=== PATIENT | female | born 2000 | race Caucasian/White ===

== ENCOUNTER 2025-06-01 10:01 | Outpatient (REF) | payer BC, SELFPAY | END 2025-06-01 10:02 | disposition home or self-care (01) | LOC: HO.LNP 10:01 | PROVIDERS: PCP Nurse Practitioner; Visit Provider Nurse Practitioner Family | DX: N39.0 Urinary tract infection, site not specified (principal); R39.9 Unspecified symptoms and signs involving the genitourinary system; R31.0 Gross hematuria; R39.15 Urgency of urination; Z13.89 Encounter for screening for other disorder | CPT/HCPCS: 51798; 81003; 88112 ==

== ENCOUNTER 2025-06-01 10:01 | Outpatient (AMB) | payer BC, SELFPAY ==
--- NOTE | 2025-06-01 10:09 | A.OFFVIS_ITS ---
Intake Visit Reasons: gross hematuria Intake Note: Patient is present for GROSS HEMATURIA Urology Medication:NONE Antibiotic Allergy:NONE Blood Thinner:NONE TODAY'S PVR:0ML'S Ton Container Shipper Required: No Allergies No Known Allergies Allergy (Verified 06/01/25 10:50) HPI Comments Details: Alice is a 24-year-old female patient of Dr. Torres who was accompanied by her significant other at today's office visit. She presents to the office today as a new patient for ongoing lower urinary tract symptoms and recurrent urinary tract infections she has experienced. In discussion with the patient today she reports noting over the last 4 years she has been having issues with bladder pressure, urinary urgency, urinary frequency, and recurrent urinary tract infections. She reports previously following up with multiple urologist in the past and having trialed postcoital as well as prophylactic doxycycline however did not find this helpful and felt she was experiencing issues with yeast infections. She reports being told to avoid sexual activity however although she avoid sexual activity she continues to experience lower urinary tract symptoms. She does report having issues with her bowels. She reports at times she experiences issues with constipation and or diarrhea. We did discussed correlation of bowel issues with lower urinary tract symptoms. We did discussed potential causes of lower urinary tract symptoms she is experiencing as well as further treatment options and risks and benefits of these treatment options. She also reports noting a history of gross hematuria. In office urinalysis results reviewed with the patient today negative leukocytes negative nitrates negative microscopic hematuria. PH 6.0. We did discussed importance of adequate hydration relation to lower urinary tract symptoms as well as overall health and well-being. We also discussed bladder triggers and irritants. She does feel when she avoids caffeine and alcohol symptoms do somewhat improve however still experiences them at baseline. She also reports having trialed the Jarrett and felt initially this was helpful however most recently continues to experience lower urinary tract symptoms of urinary urgency with small voided amounts, bladder pressure, as well as discomfort to her urethra. Call questions were answered to the best my ability. We discussed obtaining CT urogram as well as in office cystoscopy for further assessment evaluation. She is agreeable. She denies foul smelling urine, changes to urinary stream, flank pain, fever, and or chills. She otherwise offers no other issues or concerns at this time. Review of Systems Const All systems reviewed & are unremarkable except as noted in HPI and below Physical Exam Const General: cooperative, healthy appearing, comfortable, no acute distress, well developed, alert and awake Nutritional Appearance: average body habitus Orientation/consciousness: patient oriented x3 Limitations: no limitations HEENT Head: Yes normal to inspection, Yes normocephalic and Yes atraumatic Ears: hearing grossly normal bilaterally Eyes General: appearance normal, both eyes and all related structures Neck Neck: Yes normal visual inspection and Yes trachea midline Chest Chest palpation & inspection: normal inspection of the chest Resp Effort & Inspection: normal respiratory effort and able to speak in complete sentences Cardio Rate: regular rate GI Inspection: Yes normal to inspection General: Yes no CVA tenderness Back/Spine/Pelvis Back: no CVA tenderness Skin General skin exam: no rashes or lesions noted Neuro General: patient oriented x3 Extrem General: Yes normal to inspection Psych Appearance: grossly normal and well kempt Mental Status: mental status grossly normal Speech and movement: Normal speech and movement present and Clear speech present Affect: normal affect Attitude: cooperative Thought process: Normal thought process present Thought content: Normal thought content present Insight: Fair insight present (Psych) Judgement: Fair judgement present (Psych) Office Procedures Post Void Residual Post Residual Void Post Void Residual (PVR): 0 [id number] Void Residual by ultrasound Results AMB Urinalysis, Automated UA Leukoctes 0 Sean/uL Last Edit by GIO Jorgensen on 06/01/25 10:30 UA Nitrite Negative Last Edit by GIO Jorgensen on 06/01/25 10:30 UA Urobilinogen 0.2 mg/dL Last Edit by GIO Jorgensen on 06/01/25 10:3 0 UA Protein 0 mg/dL Last Edit by GIO Jorgensen on 06/01/25 10:30 UA pH 6.0 Last Edit by GIO Jorgensen on 06/01/25 10:30 UA Blood 0 Onel/uL Last Edit by GIO Jorgensen on 06/01/25 10:30 UA Specific Corning 1.015 Last Edit by GIO Jorgensen on 06/01/25 10: 30 UA Ketone Negative Last Edit by GIO Jorgensen on 06/01/25 10:30 UA Bilirubin 0 mg/dL Last Edit by GIO Jorgensen on 06/01/25 10:30 UA Glucose 0 mg/dL Last Edit by GIO Jorgensen on 06/01/25 10:30 Results Reviewed Results Reviewed: Laboratory Last Values Urine pH (Auto) 6.0 06/01/25 10:29 Specific Corning (Auto) 1.015 06/01/25 10:29 Urine Protein (Auto) 0 mg/dL 06/01/25 10:29 Glucose (UA)(Auto) 0 mg/dL 06/01/25 10:29 Urine Ketones (Auto) Negative 06/01/25 10:29 Urine Blood (Auto) 0 Onel/uL 06/01/25 10:29 Urine Nitrite (Auto) Negative 06/01/25 10:29 Urine Bilirubin (Auto) 0 mg/dL 06/01/25 10:29 Urine Urobilinogen (Auto) 0.2 mg/dL 06/01/25 10:29 Leukocyte Esterase (Auto) 0 Sean/uL 06/01/25 10:29 Assessment & Plan Assessment & Plan (1) Gross hematuria: Code(s): R31.0 - Gross hematuria Category: Medical (2) Recurrent urinary tract infection: Code(s): N39.0 - Urinary tract infection, site not specified Category: Medical (3) Lower urinary tract symptoms: Code(s): R39.9 - Unspecified symptoms and signs involving the genitourinary system Category: Medical Plan In office urinalysis results reviewed with the patient today; as noted above; will send for urine cytology. We did discussed potential near future microgen for further assessment evaluation. Will obtain CT urogram for further assessment evaluation. BUN and creatinine ordered for imaging. We discussed potential causes of lower urinary tract symptoms patient is experiencing as well as recurrent urinary tract infections; we discussed further treatment options and risks and benefits of these treatment options. We discussed the importance of adequate hydration relation to lower urinary tract symptoms as well as overall health and well-being. We discussed bladder triggers and irritants. Start Cialis as discussed and prescribed. Follow-up next available in office cystoscopy with imaging and labs to be completed prior; or sooner with any issues, concerns, and or questions. Orders: Orders AMB Urinalysis Automated Today Z13.9 - Encounter for screening, unspecified Urine Cytology Today R31.0 - Gross hematuria CT urogram Today R31.0 - Gross hematuria Blood Urea Nitrogen Today R39.15 - Urgency of urination Creatinine Today R39.15 - Urgency of urination Medications: New [facility]adal[facility] ([id number] [facility] [id number] 5 mg PO DAILY 90 tabs 1RF 90 days tadalafil (Cialis) [id number] [facility] Member [id number] 5 mg PO DAILY 90 days 90 tabs 1RF Coding Level of Care Code New Pt Level 4 (98970) Diagnoses Gross hematuria R31.0 Recurrent urinary tract infection N39.0 Lower urinary tract symptoms R39.9 CPT Codes Post Residual Void - PVR CPT Code: 32516-[id number] Void Residual by ultrasound ([id number])
--- OUTSIDE RECORDS SUMMARY | 2025-06-01 10:34 | XMS_ITS | Clinical Summary ---
Author Organization [facility] Address [address] [place] [address] Care Team Providers Care Shipping Room Helper Name Role Phone Unavailable Primary Care Provider Unavailabl e Social History Tobacco Use Types Packs/Day Years Used Date Smoking Tobacco: Never Assessed Sex and Gender Information Value Date Recorded Sex Assigned at Not on file Gender Identity Not on file Sexual Orientation Not on file Plan of Treatment Not on file
--- OUTSIDE RECORDS SUMMARY | 2025-06-01 10:34 | XMS_ITS | Encounter Summary ---
Author Organization [facility] Address [address] [facility] [address] [place] [address] Phone Care Team Providers Care Beauty Therapist Name Role Phone Yumi Torres NP Primary Care Provider [phone] Encounter Details Date Type Department Care Team (Latest Contact Info) Description 03/26/2018 Transcribe Orders [facility] [address] [place] [id number] Rigoberto Kay MD [address] [facility] [address] [place] [address] [email or web address] Dysmenorrhea (Primary Dx) Social History Tobacco Use Types Packs/Day Years Used Date Smoking Tobacco: Never Smokeless Tobacco: Never Alcohol Use Standard Drinks/Week Comments Yes 9 (1 standard drink = 0.6 oz pur e alcohol) monthly Comments No Sex and Gender Information Value Date Recorded Sex Assigned at Female 03/02/2018 8:03 PM EDT Legal Sex Female 8:46 PM EDT Gender Identity Female 03/02/2018 8:03 PM EDT Sexual Orientation Not on file Occupation Industry Job Start Date Job End Date student Not on file Not on file Not on file documented as of this encounter Plan of Treatment Not on file documented as of this encounter Results * US PELVIS TRANSABDOMINAL PLUS TRANSVAGINAL (03/26/2018 4:18 PM EDT) Anatomical Region Laterality Modality Pelvis, Uterus/Adnexa OB Ultraso und 03/26/2018 4:20 PM EDT Impressions 03/26/2018 6:09 PM EDT 1. Normal appearing uterus. 2. Normal appearing endometrial stripe complex. 3. The right ovary contains two cysts as described above. One is simple in appearance. The other contains dense internal echoes with an appearance suggestive of a hemorrhagic cyst. However, an endometrioma can not be excluded. Consider follow-up ultrasound in 6 weeks. 4. Normal appearing left ovary. 5. There is no free fluid. . Narrative 03/26/2018 6:09 PM EDT INDICATION: Dysmenorrhea EXAM DATE: 03/26/2018 4:20 PM LMP DATE: 03/07/2018 GYNECOLOGICAL ULTRASONOGRAPHY: Uterus Volume: 70.83 ml Homogeneous, anteverted uterus with smooth contour. Length: 7.55 cm Height: 3.40 cm Width: 5.27 cm Endometrial Thickness: 5.4 mm Appears unremarkable Right Ovary Volume: 18.58 ml Appears to contain a simple cyst as well as what appears to be a hemorrhagic cyst with dense internal echos and no increased vascularity noted. No adnexal masses seen. Length: 4.22 cm Height: 2.67 cm Width: 3.15cm Cyst Simple Length: 1.84 cm Height: 1.76cm Width: 2.60 cm Cyst Hemorrhagic cyst v/s endometrioma Length: 3.08 cm Width: 2.44 cm Height: 2.94 cm Left Ovary Volume: 3.03 ml Normal appearance with follicles. No adnexal masses seen. Length: 2.27 cm Height: 1.41 cm Width: 1.81 cm Cul de Sac Fluid: No free fluid noted COMMENTS: Anteverted uterus Normal appearing endometrial lining with no intercavitary masses noted. The right ovary is cystic, see above comments The left ovary is unremarkable with follicles within. Transabdominal and transvaginal scanning was performed. Procedure Note Rigoberto Kay MD - 03/26/2018 INDICATION: Dysmenorrhea EXAM DATE: 03/26/2018 4:20 PM LMP DATE: 03/07/2018 GYNECOLOGICAL ULTRASONOGRAPHY: Uterus Volume: 70.83 ml Homogeneous, anteverted uterus with smooth contour. Length: 7.55 cm Height: 3.40 cm Width: 5.27 cm Endometrial Thickness: 5.4 mm Appears unremarkable Right Ovary Volume: 18.58 ml Appears to contain a simple cyst as well as what appears to be ahemorrhagic cyst with dense internal echos and no increased vascularitynoted. No adnexal masses seen. Length: 4.22 cm Height: 2.67 cm Width: 3.15cm Cyst Simple Length: 1.84 cm Height: 1.76cm Width: 2.60 cm Cyst Hemorrhagic cyst v/s endometrioma Length: 3.08 cm Width: 2.44 cm Height: 2.94 cm Left Ovary Volume: 3.03 ml Normal appearance with follicles. No adnexal masses seen. Length: 2.27 cm Height: 1.41 cm Width: 1.81 cm Cul de Sac Fluid: No free fluid noted COMMENTS: Anteverted uterus Normal appearing endometrial lining with no intercavitary masses noted. The right ovary is cystic, see above comments The left ovary is unremarkable with follicles within. Transabdominal and transvaginal scanning was performed. IMPRESSION: 1. Normal appearing uterus. 2. Normal appearing endometrial stripe complex. 3. The right ovary contains two cysts as described above. One is simplein appearance. The other contains dense internal echoes with anappearance suggestive of a hemorrhagic cyst. However, an endometrioma cannot be excluded. Consider follow- up ultrasound in 6 weeks. 4. Normal appearing left ovary. 5. There is no free fluid. . Rigoberto Kay MD IMG US PELVIS Final Result documented in this encounter Visit Diagnoses Diagnosis Dysmenorrhea- Primary Dysmenorrhea documented in this encounter Additional Health Concerns Infection Onset Date Last Indicated Resolved Time CoV-Exposed Comment:Recent close contact 05/27/2020 05/27/2020 06/10/2020 1:37 AM EDT documented as of this encounter Care Teams Beauty Therapist Relationship Specialty Start Date End Date Yumi Torres NP [address] [place] [address] [email or web address] PCP - General 03/02/18 documented as of this encounter Additional Source Comments The information contained in this document represents components of the legal health record. It is not the complete legal health record.[facility]
--- OUTSIDE RECORDS SUMMARY | 2025-06-01 10:34 | XMS_ITS | Clinical Summary ---
Author Organization [facility] Address [facility] [place] [address] Care Team Providers Care Truer Pinion And Wheel Name Role Phone Unavailable Primary Care Provider Unavailabl e Social History Tobacco Use Types Packs/Day Years Used Date Smoking Tobacco: Never Assessed Comments Unknown Sex and Gender Information Value Date Recorded Sex Assigned at Not on file Legal Sex Female 9:18 AM EDT Gender Identity Not on file Sexual Orientation Not on file Plan of Treatment Health Maintenance Due Date Last Done Comments Chlamydia Screening 2016 HPV vaccine (1 - 3-dose series) 2016 HIV screen 2019 Hepatitis C Screening 2019 Hepatitis B vaccine (0-59 yrs) and Risk (1) 2020 Tetanus/Diphtheria/Pertussis Vaccines (1 - Tdap) 07/29 PAP Smear 2022 Covid-19 Vaccine (1 - 2023- season) 2024 Influenza (Flu) vaccine (1 o f 1 - Influenza standard series) 06/28/2025 [facility]
--- OUTSIDE RECORDS SUMMARY | 2025-06-01 10:34 | XMS_ITS | Clinical Summary ---
[facility] Address [address] [place] [address] Care Team Providers Care Lightning Rod Erector Name Role Phone Unavailable Primary Care Provider Unavailabl e Social History Tobacco Use Types Packs/Day Years Used Date Smoking Tobacco: Never Assessed Comments Unknown Sex and Gender Information Value Date Recorded Sex Assigned at Not on file Legal Sex Female 12:09 AM EST Gender Identity Not on file Sexual Orientation Not on file Plan of Treatment Health Maintenance Due Date Last Done Comments Gonorrhea/Chlamydia Screening 2001 HPV Vaccines (1 - 3-dose series) 2016 Meningococcal B Vaccine (1 o f 2 - Standard) 2017 DTaP,Tdap,and Td Vaccines (1 - Tdap) 2020 Hepatitis B Vaccines (1 of 3 - 19+ 3-dose series) 2020 Cervical Cancer Screening: P ap Smear 2022 COVID-19 Vaccine ( - 2023-2 5 season) 2024 Depression Screening 10/28/2024 Influenza Vaccine (#1) 2025 HIB Vaccines Aged Out No longer eligi ble based on patient's age to complete this topic Hepatitis A Vaccines Aged Out No long er eligible based on patient's age to complete this topic IPV Vaccines Aged Out No longer eligi ble based on patient's age to complete this topic MMR Vaccines Aged Out No longer eligi ble based on patient's age to complete this topic Meningococcal ACWY Vaccine Aged Out N o longer eligible based on patient's age to complete this topic Pneumococcal Vaccine: Pediat rics (0 to 5 Years) and At-Risk Patients (6 to 49 Years) Aged Out No longer eligible b ased on patient's age to complete this topic RSV Immunization Patients Un soumya 20 months Aged Out No longer eligible b ased on patient's age to complete this topic Varicella Vaccines Aged Out No longer eligible based on patient's age to complete this topic
== END 2025-06-01 10:52 | disposition home or self-care (01) ==
LOC: HO.HUSH 10:02
PROVIDERS: PCP Nurse Practitioner; Visit Provider Nurse Practitioner Family
DX: R31.0 Gross hematuria (principal); N39.0 Urinary tract infection, site not specified; R39.9 Unspecified symptoms and signs involving the genitourinary system; Z13.9 Encounter for screening, unspecified
CPT/HCPCS: 99204

== ENCOUNTER 2025-07-19 08:17 | Outpatient (REF) | payer BC, SELFPAY ==
--- NOTE | ~2025-07-19 | CT_ITS ---
CLINICAL HISTORY: R31.0 - Gross hematuria CT abdomen and pelvis with and without contrast Comparison: None provided Findings: The lung bases are clear. There is no urinary calculus or obstructive uropathy. No suspicious renal parenchymal lesion. Visualized ureters are normal in course and in caliber. Portions of the ureters are not opacified. No suspicious bladder lesion identified. The liver exhibits a probable small cyst or hemangioma peripherally within the right lobe on axial 28 The gallbladder, spleen, adrenal glands and pancreas are unremarkable. Moderate fecal retention throughout the colon. Normal appendix. No free air or free fluid. Well-positioned IUD. No adnexal lesion. No acute osseous finding. Impression: There is no urinary calculus or suspicious urinary tract lesion identified. This document has been electronically signed by: uX Munson MD on 07/19/2025 12:56:04
[2025-07-19] MEDS: iohexoL 350 MG/ML 100 ML INFUS..BTL 85 ML IV (09:09)
--- OUTSIDE RECORDS SUMMARY | 2025-07-19 09:25 | XMS_ITS | Encounter Summary ---
Author Organization [facility] Address [address] [facility] [address] [place] [phone] Phone Care Team Providers Care Clinical Pharmacy Specialist Name Role Phone Yumi Torres NP Primary Care Provider [phone] Encounter Details Date Type Department Care Team (Late st Contact Info) Description 07/24/2024 Procedure Pass [facility], [address] [address] Social History Tobacco Use Types Packs/Day Years Used Date Smoking Tobacco: Some Days Cigarettes Smokeless Tobacco: Never Alcohol Use Standard Drinks/Week Comments Yes 9 (1 standard drink = 0.6 oz pur e alcohol) couple in a week Education Answer Date Recorded Are you interested in more education? Not on ashleigh e 02/22/2023 Are you concerned about learning? Not on file 02/22/2023 No 02/22/2023 No 02/22/2023 Digital Access Answer Date Recorded No 03/22/2023 No 03/22/2023 Reliable internet access at home? Not on file 03/22/2023 Device with a working camera? Not on file Comments No Sex and Gender Information Value Date Recorded Sex Assigned at Female 03/02/2018 8:03 PM EDT Legal Sex Female 8:46 PM EDT Gender Identity Female 03/02/2018 8:03 PM EDT Sexual Orientation Not on file Occupation Industry Job Start Date Job End Date student Not on file Not on file Not on file documented as of this encounter Last Filed Vital Signs Vital Sign Reading Time Taken Comments Blood Pressure - - Pulse - - Temperature - - Respiratory Rate - - Oxygen Saturation - - Inhaled Oxygen Concentration - - Weight 72.6 kg (160 lb) 07/27/2024 1:46 PM EDT Height 177.8 cm (5' 10 ) 07/27/2024 1:46 PM EDT Body Mass Index 22.96 07/27/2024 1:46 PM EDT documented in this encounter Plan of Treatment Not on file documented as of this encounter Visit Diagnoses Not on filedocumented in this encounter Care Teams Clinical Pharmacy Specialist Relationship Specialty Start Date End Date Yumi Torres NP [address] [place] [id number] [email or web address] PCP - General 03/02/18 documented as of this encounter Additional Source Comments The information contained in this document represents components of the legal health record. It is not the complete legal health record.[facility]
--- OUTSIDE RECORDS SUMMARY | 2025-07-19 09:25 | XMS_ITS | Encounter Summary ---
Author Organization [facility] Address [address] [place] [address] Phone Care Team Providers Care Land Acquisition Analyst Name Role Phone Yumi Torres NP Primary Care Provider [phone] Encounter Details Date Type Department Care Team (Late st Contact Info) Description 08/07/2019 Procedure Pass [facility] [place], [address] [address] Social History Tobacco Use Types Packs/Day Years [...] Diagnoses Not on filedocumented in this encounter Additional Health Concerns Infection Onset Date Last Indicated Resolved Time CoV-Exposed Comment:Recent close contact 05/27/2020 05/27/2020 06/10/2020 1:37 AM EDT documented as of this encounter Care Teams Land Acquisition Analyst Relationship Specialty Start Date End Date Yumi Torres NP [address] [place] [address] [email or web address] PCP - General 03/02/18 documented as of this encounter Additional Source Comments The information contained in this document represents components of the legal health record. It is not the complete legal health record.[facility]
--- OUTSIDE RECORDS SUMMARY | 2025-07-19 09:25 | XMS_ITS | Clinical Summary ---
Author Organization [facility] Address [address] [place] [address] Care Team Providers Care Fuselage Framer Name Role Phone Unavailable Primary Care Provider Unavailabl e Social History Tobacco Use Types Packs/Day Years Used Date Smoking Tobacco: Never Assessed Sex and Gender Information Value Date Recorded Sex Assigned at Not on file Gender Identity Not on file Sexual Orientation Not on file Plan of Treatment Not on file
--- OUTSIDE RECORDS SUMMARY | 2025-07-19 09:25 | XMS_ITS | Clinical Summary ---
Author Organization [facility] Address [address] [facility] [address] [place] [address] Phone Care Team Providers Care Shell Worker Name Role Phone Yumi Torres NP Primary Care Provider [phone] Allergies Active Allergy Reactions Criticality Noted Date Comments Amoxicillin Rash Low 03/02/2018 Penicillin G Benzathine Rash Low 04/12/2016 Medications levonorgestreL (MIRENA) 20 mcg/24 hours (5 yrs) 52 mg intrauterine device 1 Device by Intrauterine route Once every 5 years. Active clobetasol (TEMOVATE) 0.05 % ointmentIndicati ons:LSC (lichen simplex chronicus) Apply topically 3 (three) times a week. Lentil size or smaller amount. With flare of symptoms may increase twice a day and when resolved resume three nights/week. 45 g 1 Active tacrolimus (PROTOPIC) 0.1 % ointmentIndicati ons:Lichen simplex chronicus Apply topically 2 (two) times a day. Apply to affected area 60 g 1 3 Active ibuprofen (ADVIL,MOTRIN) 600 MG tablet Take 600 mg by mouth every 8 (eight) hours as needed for pain (specific location in comments). with food 4 Active magnesium hydroxide (MOM) 400 mg/5 mL Susp Take 5 mL by mouth daily as needed (constipation). 4 Active venlafaxine (EFFEXOR) 75 MG tablet 5 Active Active Problems Problem Noted Date Diagnosed Date Lichen simplex chronicus 06/20/2021 Assessment & Plan (06/20/2021 5:11 PM EDT): Discussed use of small amount of clobetasol applied to affected areas 2-3 nights per week. Increase to twice daily use with flare. Chronicity of condition reviewed with patient. More consistent clobetasol use may help prevent dyspareunia and flare of symptoms. [place] Follow-up 1 year/as needed. History of chlamydia 03/28/2021 Overview (06/20/2021): March 2021 Assessment & Plan (06/20/2021 5:13 PM EDT): Pt had additional STI screening at time of chlamydia infection in March. Labs are reviewed. All negative-HIV, hepatitis, RPR. I have advised patient to have repeat screening for chlamydia in 3 to 4 months following recent infection. Safe sexual practices encouraged. Chronic vulvitis 11/17/2018 Overview (06/25/2019): bx may 2019 - lichen simplex chronicus Assessment & Plan (05/23/2020 11:29 AM EDT): Flare in sxs, exam c/w more of a LP , contact dermatitis, or possibly yeast based on the recent antix use Will treate empirically for yeast with diflucan, increase clobetasol to BID up to 6 weeks (if helping), can also soak and seal daily Menorrhagia with regular cycle 03/16/2018 Dysmenorrhea 03/16/2018 Menstrual migraine without s tatus migrainosus, not intractable 03/16/2018 Immunizations Immunization Administration Dates Next Due DTaP, unspecified formulation 12/02/2005 ,02/19/2003,04/28/2002,02/03 [id number] 08/24/2009 HPV,quadrivalent 01/27/2015,03/08/2014, 4 Hepatitis A, Adult 08/10/2015 Hepatitis A, ped/adol, 2 dose 02/06/2016 Hepatitis B, unspecified formulation 01/21/2008, 07/08/2007,01/21/2007 Hib, unspecified formulation 11/20/2002, 02/03/2002,2001,09/23 INFLUENZA, SPLIT VIRUS, TRIV ALENT W/ PRESERVATIVE IM 07/22/2012,08/24/2010,09/26/2009 IPV 11/26/2005, 3,02/03/2002,12/02 Influenza Quadrivalent MDCK Preservative Free IM 08/22/2018 Influenza Quadrivalent Prese rvative Free IM 07/12/2016,08/10/2015 Influenza quadrivalent nasal 08/13/2011 MMR 11/26/2005,08/07/2002 Meningococcal MCV4P 04/06/2019,12/28/2013 Tdap 12/30/2013 Typhoid, unspecified formulation 03/14/2016 Varicella 01/02/2010,01/21/2007 Family History Medical History Relation Comments No Known Problems Father Heart attack Maternal Grandfather Endometriosis Maternal Grandmother Heart failure Maternal Grandmother Endometriosis Mother Relation Status Comments Brother Alive Father Alive Maternal Grandfather Maternal Grandmother Mother Alive Paternal Grandfather Paternal Grandmother Alive Social History Tobacco Use Types Packs/Day Years Used Date Smoking Tobacco: Some Days Cigarettes Smokeless Tobacco: Never Alcohol Use Standard Drinks/Week Comments Yes 9 (1 standard drink = 0.6 oz pur e alcohol) couple in a week Home Health Assessment: Transportation Answer Date Recorded Lack of Transportation (Medical) No 09/22/2024 Lack of Transportation (Non-Medical) No 09/22/2024 Patient Unable or Declines to Respond No 09/22/2024 Education Answer Date Recorded Are you interested [...] file Not on file Not on file Last Filed Vital Signs Vital Sign Reading Time Taken Comments Blood Pressure 110/64 02/02/2025 8:25 AM EDT Pulse 58 09/14/2024 11:47 AM EST Temperature 37.2 C (98.9 F) 03/02/2018 8:02 PM EDT Respiratory Rate 18 03/02/2018 10:09 PM EDT Oxygen Saturation 98% 09/14/2024 11:47 AM EST Inhaled Oxygen Concentration - - Weight 74.5 kg (164 lb 3.2 oz) 12/17/2024 8:29 A M EST Height 177.8 cm (5' 10 ) 07/27/2024 1:46 PM EDT Body Mass Index 23.56 07/27/2024 1:46 PM EDT Plan of Treatment Health Maintenance Due Date Last Done Comments DEPRESSION SCREENING 2013 MENINGOCOCCAL VACCINES (B) ( 1 of 2 - Standard) 2017 PNEUMOCOCCAL VACCINES (0-49 years) (1 of 2 - PCV) 2020 Adult Td,Tdap Booster 12/31/2023 12/30/2013 INFLUENZA VACCINE (#1) 2025 8, 07/12/2016, 08/10/2015, Additional history exists COVID-19 VACCINE (2024-2 6 season) 2025 04/19/2021, 03/29/2021 CHLAMYDIA SCREENING 02/02/2026 02/02/2025, 08/11/2024, 04/04/2021, Additional history exists SMOKING Hx and SMOKELESS TOB ACCO SCREENING 02/02/2026 02/02/2025 IUD 04/21/2026 04/21/2018 PAP SMEAR 08/11/2027 08/11/2024 HIB VACCINES Completed 11/20/2002, 0406/2002, 2001, Additional history exists HPV VACCINES Completed 01/27/2015, 02/25, 12/28/2013 HEPATITIS A VACCINES Completed 02/06/2016, 08/10/20 15 MENINGOCOCCAL VACCINES (ACWY) Completed 04/06/2019, 12/28/2013 HEPATITIS C SCREENING Completed 04/04/2021 HIV ONE-TIME SCREENING (18-6 5 YEARS) Completed 04/04/2021 Medical Devices Not on file Procedures Procedure Name Priority Date/Time Associated Diagnosis Comments CHLAMYDIA TRACHOMATIS AND NEISSERIA GONORRHOEAE NUCLEIC ACID DETECTION Routine 02/02/2025 8:53 AM EDT Exposure to chlamydia PAP TEST Routine 08/11/2024 12:00 AM EDT HEPATITIS C ANTIBODY, QUALITATIVE Routine 04/04/2021 3:34 PM EDT Screening for STD (sexually transmitted disease) from Last 3 Months or Most Recently Relevant to Health Maintenance Results * Chlamydia trachomatis and Neisseria gonorrhoeae Nucleic Acid Amplification (02/02/2025 8:53 AM EDT) CHLAMYDIA TRACHOMATIS Not Detected Not Detected [facility] NEISERIA GONORRHOEAE Not Detected Not Detected [facility] SPECIMEN TYPE ENDOCERVICAL NANNY/HOUSEHOLD MANAGER [facility] Other (Endocervical) 02/02/2025 8:53 AM EDT 02/02/2025 3:26 PM EDT Rigoberto Kay MD NON CULTURE MICROBIOLOGY [facility] Result Performing Organization Address City/State/[facility] Co de Phone Number [address] [address] * Pap Test (08/11/2024 12:00 AM EDT) 08/11/2024 08/12/2024 9:3 1 AM EDT Narrative SEE NARRATIVE - 08/13/2024 10:37 AM EDT [address] [address] Global Creative Chairman: Chavez Pathak MD PRESS MACHINE FEEDER Cytology Report FINAL DIAGNOSIS A. PAP SMEAR (THIN PREP) CE: SPECIMEN ADEQUACY: Satisfactory for evaluation; transformation zone present. INTERPRETATION: NEGATIVE FOR INTRAEPITHELIAL LESION OR MALIGNANCY. Coccobacilli consistent with shift in morgan This specimen was analyzed by the automated ThinPrep Imaging System (Money M[employer].) and manually rescreened by a regional psychiatric director and/or pathologist. Electronically Signed Out By: LESLEY Denise(ASCP) The Pap test is a screening test primarily for squamous cancers and precursors and has associated false-negative and false-positive results. New technologies such as liquid-based preparations may decrease but will not eliminate all false-negative results. Regular sampling and follow-up of unexplained clinical signs and symptoms are recommended to minimize false negative results. CLINICAL HISTORY Date of Last Menstrual Period: Not Provided Menstrual History: Unknown Contraceptive History: IUD Other Clinical Conditions: Screening Pap SPECIMEN SOURCE A: PAP SMEAR (THIN PREP) CE Patient Name: CAITLIN ALICE Arechiga : 2000 (Age: 24) Sex: F Institution: [facility] Location: [facility] Date of Collection: 08/11/2024 Date of Reported: 08/13/2024 10:37 Results to: Keerthi Wilson MD Keerthi Wilson MD CYTOLOGY ORDERABLES Final Result Performing Organization Address City/[facility]/ZIP Co de Phone Number SEE NARRATIVE * Hepatitis C antibody, qualitative (04/04/2021 3:34 PM EDT) HCV NON-REACTIV E NON-REACTI VE [facility] Blood 04/04/2021 3:34 PM EDT 04/04/2021 3:40 PM EDT Rigoberto Kay MD LAB BLOOD ORDERABLES Final Re sult Performing Organization Address City/[facility]/ZIP Co de Phone Number [facility] [address] [place] [address] from Last 3 Months or Most Recently Relevant to Health Maintenance Insurance [facility] PPO EPO [facility] PPO EPO [facility] PPO EPO [facility] PPO EPO PPO EPO PPO EPO Care Teams Shell Worker Relationship Specialty Start Date End Date Yumi Torres NP [address] [place] [address] [email or web address] PCP - General 03/02/18 Additional Source Comments The information contained in this document represents components of the legal health record. It is not the complete legal health record.[facility]
--- OUTSIDE RECORDS SUMMARY | 2025-07-19 09:25 | XMS_ITS | Clinical Summary ---
Author Organization [facility] Address [address] [place] [address] Care Team Providers Care Cylinder Grinder Name Role Phone Unavailable Primary Care Provider [...] Cervical Cancer Screening: P ap Smear 2022 Depression Screening 10/28/2024 COVID-19 Vaccine ( - 2023-2 5 season) 2025 Influenza Vaccine (#1) 2025 HIB Vaccines Aged [...]
--- OUTSIDE RECORDS SUMMARY | 2025-07-19 09:25 | XMS_ITS | Encounter Summary ---
Author Organization [facility] Address [address] [place] [address] [place] [address] Phone Care Team Providers Care Geriatric Case Manager Name Role Phone Yumi Torres NP Primary Care Provider [phone] Encounter Details Date Type Department Care Team (Latest Contact Info) Description 03/26/2018 Transcribe Orders [facility] [address] [place] [address] Rigoberto Kay MD [address] [address] [email or web address] Dysmenorrhea (Primary Dx) Social History Tobacco Use [...] documented as of this encounter Care Teams Geriatric Case Manager Relationship Specialty Start Date End Date Yumi Torres NP [address] [place] [address] [email or web address] PCP - General 03/02/18 documented as of this encounter Additional Source Comments The information contained in this document represents components of the legal health record. It is not the complete legal health record.[facility]
--- OUTSIDE RECORDS SUMMARY | 2025-07-19 09:25 | XMS_ITS | Encounter Summary ---
Author Organization [facility] Address [address] [facility] [place] [address] Phone Care Team Providers Care Steel Fabricator Name Role Phone Yumi Torres NP Primary Care Provider [phone] Encounter Details Date Type Department Care Team (Latest Contact Info) Description 07/25/2018 Transcribe Orders [facility] [address] [place] [address] Dr Armstrong [place] [phone] Dexter Pang PA [email or web address] Acne, unspecified acne type (Primary Dx); Need for prophylactic chemotherapy Social History Tobacco Use Types Packs/Day Years [...] documented as of this encounter Results * HCG (quantitative blood), (07/25/2018 3:35 PM EDT) HCG BETA <0.1 mIU/mL [facility] Comment: Interpretation: FEMALE: Negative Result: Less than 5 mIU/ml. 1 Week Post Conception: 0 - 50 mIU/ml. 4 Weeks Post Conception: 3,000 - 19,000 mIU/ml. 12 Weeks Post Conception: 16,000 - 160,000 mIU/ml. Blood 07/25/2018 3:35 PM EDT 07/25/2018 3:38 PM EDT us Dexter [facility] LAB BLOOD ORDERABLES Final Re sult Performing Organization Address [facility] Co de Phone Number [address] [address] * (ABNORMAL) Triglycerides (07/25/2018 3:35 PM EDT) TRIGLYCERIDES 191(H) 30 - 160 mg/dL [facility] Blood 07/25/2018 3:35 PM EDT 07/25/2018 3:38 PM EDT Dexter [facility] LAB BLOOD ORDERABLES Final Re sult Performing Organization Address [facility] de Phone Number [address] [address] * LFTs (hepatic panel) (07/25/2018 3:35 PM EDT) ALKALINE PHOSPHATASE 72 39 - 117 U/L [facility] TOTAL BILIRUBIN 0.3 0.0 - 1.2 mg/dL [facility] DIRECT BILIRUBIN <0.2 0 - 0.3 mg/dL [facility] Bilirubin (Indirect) NOT CALCULATED 0 - 1.5 mg/dL [facility] AST 24 0 - 37 U/L [facility] ALT 15 0 - 40 U/L [facility] TOTAL PROTEIN 7.3 6.5 - 8.0 g/dL [facility] ALBUMIN 4.5 3.9 - 4.8 g/dL [facility] GLOBULIN 2.8 1 - 4.8 g/dL [facility] A/G Ratio 1.61 1.00 - 4.80 RATIO [facility] Blood 07/25/2018 3:35 PM EDT 07/25/2018 3:38 PM EDT Dexter [facility] LAB BLOOD ORDERABLES Final Re sult [facility] [address] [place] [address] documented in this encounter Visit Diagnoses Diagnosis Acne, unspecified acne type- Primary Need for prophylactic chemotherapy Need for other prophylactic chemotherapy documented in this encounter Additional Health Concerns Infection Onset Date Last Indicated Resolved Time CoV-Exposed Comment:Recent close contact 05/27/2020 05/27/2020 06/10/2020 1:37 AM EDT documented as of this encounter Care Teams Steel Fabricator Relationship Specialty Start Date End Date Yumi Torres NP [address] [place] [address] [email or web address] PCP - General 03/02/18 documented as of this encounter Additional Source Comments The information contained in this document represents components of the legal health record. It is not the complete legal health record.[facility]
--- OUTSIDE RECORDS SUMMARY | 2025-07-19 09:25 | XMS_ITS | Encounter Summary ---
Author Organization [facility] Address [address] [facility] [place] [address] Phone Care Team Providers Care Machine Clothing Replacer Name Role Phone Yumi Torres NP Primary Care Provider [phone] Encounter Details Date Type Department Care Team (Latest Contact Info) Description 05/21/2019 Transcribe Orders [facility] [address] [place] [address] Dr Armstrong [place] [phone] Vish Rondon, PA [address] [place] [address] [email or web address] Encounter for long-term (current) use of other medications (Primary Dx) Social History Tobacco Use Types [...] documented as of this encounter Results * Ferritin (05/21/2019 9:35 AM EDT) FERRITIN 30 13 - 150 ug/L [facility] Blood 05/21/2019 9:35 AM EDT 05/21/2019 9:37 AM EDT us Vish [facility] LAB BLOOD ORDERABLES Final Result [facility] [address] [place] [address] documented in this encounter Visit Diagnoses Diagnosis Encounter for long-term (current) use of other medications- Primary documented in this encounter Additional Health Concerns Infection Onset Date Last Indicated Resolved Time CoV-Exposed Comment:Recent close contact 05/27/2020 05/27/2020 06/10/2020 1:37 AM EDT documented as of this encounter Care Teams Machine Clothing Replacer Relationship Specialty Start Date End Date Yumi Torres NP [address] [place] [address] [email or web address] PCP - General 03/02/18 documented as of this encounter Additional Source Comments The information contained in this document represents components of the legal health record. It is not the complete legal health record.[facility]
--- OUTSIDE RECORDS SUMMARY | 2025-07-19 09:25 | XMS_ITS | Encounter Summary ---
Author Organization [facility] Address [address] [facility] [address] [place] [address] Phone Care Team Providers Care Lineworker Name Role Phone Yumi Torres NP Primary Care Provider [phone] Encounter Details Date Type Department Care Team (Late st Contact Info) Description 07/15/2019 Procedure Pass [facility], [address] [address] Social History Tobacco Use Types Packs/Day Years [...] documented as of this encounter Care Teams Lineworker Relationship Specialty Start Date End Date Yumi Torres NP [address] [place] [phone] [email or web address] PCP - General 03/02/18 documented as of this encounter Additional Source Comments The information contained in this document represents components of the legal health record. It is not the complete legal health record.[facility]
--- OUTSIDE RECORDS SUMMARY | 2025-07-19 09:25 | XMS_ITS | Clinical Summary ---
Author Organization [facility] Address [facility] [address] Care Team Providers Care Certified Art Therapist Name Role Phone Unavailable Primary Care Provider [...] 2022 Covid-19 Vaccine (1 - 2023- season) 2025 Influenza (Flu) vaccine (1 o f 1 - Influenza standard series) 06/28/2025 [facility]
== END 2025-07-19 08:18 | disposition home or self-care (01) ==
LOC: HO.CT 08:17
PROVIDERS: Visit Provider Nurse Practitioner Family
DX: R31.0 Gross hematuria (principal)
CPT/HCPCS: 74178; Q9967

== ENCOUNTER → 2025-07-19 08:18 | Outpatient (BNV) | payer BC, SELFPAY | PROVIDERS: Visit Provider Radiology Vascular & Interventional Radiology | DX: R31.0 Gross hematuria (principal) | CPT/HCPCS: 74178 ==

== ENCOUNTER 2025-07-27 10:01 | Outpatient (AMB) | payer BC, SELFPAY ==
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
--- OUTSIDE RECORDS SUMMARY | 2025-07-27 11:03 | XMS_ITS | Encounter Summary ---
Author Organization [facility] Address [address] [facility] [address] [place] [address] Phone Care Team Providers Care Data Analyst Report Writer Name Role Phone Yumi Torres NP Primary Care Provider [phone] Encounter Details Date Type Department Care Team (Latest Contact Info) Description 03/26/2018 Transcribe Orders [facility] [address] [place] [address] Rigoberto Kay MD [address] [facility] [address] [place] [address] [email or web address] Dysmenorrhea (Primary Dx) Social History Tobacco Use [...] documented as of this encounter Care Teams Data Analyst Report Writer Relationship Specialty Start Date End Date Yumi Torres NP [address] [place] [address] [email or web address] PCP - General 03/02/18 documented as of this encounter Additional Source Comments The information contained in this document represents components of the legal health record. It is not the complete legal health record.[facility]
--- OUTSIDE RECORDS SUMMARY | 2025-07-27 11:03 | XMS_ITS | Encounter Summary ---
Author Organization [facility] Address [address] [place] [address] Phone Care Team Providers Care Botany Laboratory Assistant Name Role Phone Yumi Torres NP Primary Care Provider [phone] Encounter Details Date Type Department Care Team (Latest Contact Info) Description 11/20/2018 Transcribe Orders [address] [place] [phone] Vish Rondon, PA [address] [place] [address] Acne vulgaris (Primary Dx); Encounter for long-term (current) use of medications Social History Tobacco Use Types Packs/Day Years [...] as of this encounter Results * Ferritin (11/20/2018 4:17 PM EST) FERRITIN 35 13 - 150 ug/L [facility] Blood 11/20/2018 4:17 PM EST 11/20/2018 4:20 PM EST us Vish [facility] BLOOD ORDERABLES Final Result Performing Organization Address City/[facility]/ZIP Co de Phone Number [address] [address] * HCG, serum qualitative (11/20/2018 4:17 PM EST) HCG, QUALITATIVE Negative Negative IU/L [facility] Blood 11/20/2018 4:17 PM EST 11/20/2018 4:20 PM EST Vish [facility] BLOOD ORDERABLES Final Result Performing Organization Address [facility] Co de Phone Number [address] [address] documented in this encounter Visit Diagnoses Diagnosis Acne vulgaris- Primary Other acne Encounter for long-term (current) use of medications Encounter for long-term (current) use of other medications documented in this encounter Additional Health Concerns Infection Onset Date Last Indicated Resolved Time CoV-Exposed Comment:Recent close contact 05/27/2020 05/27/2020 06/10/2020 1:37 AM EDT documented as of this encounter Care Teams Botany Laboratory Assistant Relationship Specialty Start Date End Date Yumi Torres NP [address] [place] [id number] [email or web address] PCP - General 03/02/18 documented as of this encounter Additional Source Comments The information contained in this document represents components of the legal health record. It is not the complete legal health record.[facility]
--- OUTSIDE RECORDS SUMMARY | 2025-07-27 11:03 | XMS_ITS | Encounter Summary ---
Author Organization [facility] Address [address] [place] [address] [place] [address] Phone Care Team Providers Care Bonus Clerk Name Role Phone Yumi Torres NP Primary Care Provider [phone] Encounter Details Date Type Department Care Team (Late st Contact Info) Description 08/07/2019 Procedure Pass [facility], [address] [address] Social History Tobacco Use Types Packs/Day Years [...] documented as of this encounter Care Teams Bonus Clerk Relationship Specialty Start Date End Date Yumi Torres NP [address] [place] [phone] [email or web address] PCP - General 03/02/18 documented as of this encounter Additional Source Comments The information contained in this document represents components of the legal health record. It is not the complete legal health record.[facility]
--- OUTSIDE RECORDS SUMMARY | 2025-07-27 11:03 | XMS_ITS | Encounter Summary ---
Author Organization [facility] Address [address] [facility] [address] [place] [address] Phone Care Team Providers Care Handicapper Harness Racing Name Role Phone Yumi Torres NP Primary Care Provider [phone] Encounter Details Date Type Department Care Team (Late st Contact Info) Description 07/24/2024 Procedure Pass [facility], [address] [address] Social History Tobacco Use Types Packs/Day Years [...] on filedocumented in this encounter Care Teams Handicapper [employer] Relationship Specialty Start Date End Date Yumi Torres NP [address] [place] [phone] [email or web address] PCP - General 03/02/18 documented as of this encounter Additional Source Comments The information contained in this document represents components of the legal health record. It is not the complete legal health record.[facility]
--- OUTSIDE RECORDS SUMMARY | 2025-07-27 11:03 | XMS_ITS | Clinical Summary ---
Author Organization [facility] Address [address] [place] [address] Care Team Providers Care Lumber Yard Worker Name Role Phone Unavailable Primary Care Provider Unavailabl e Social History Tobacco Use Types Packs/Day Years Used Date Smoking Tobacco: Never Assessed Sex and Gender Information Value Date Recorded Sex Assigned at Not on file Gender Identity Not on file Sexual Orientation Not on file Plan of Treatment Not on file
--- OUTSIDE RECORDS SUMMARY | 2025-07-27 11:03 | XMS_ITS | Clinical Summary ---
Author Organization [facility] Address [address] [place] [address] Care Team Providers Care Optical Instrument Assembler Name Role Phone Unavailable Primary Care Provider [...]
--- OUTSIDE RECORDS SUMMARY | 2025-07-27 11:03 | XMS_ITS | Clinical Summary ---
Author Organization [facility] Address [facility] [place] [address] Care Team Providers Care Milk And Cream Grader Name Role Phone Unavailable Primary Care Provider [...] 1 - Influenza standard series) 06/28/2025 [facility]
--- OUTSIDE RECORDS SUMMARY | 2025-07-27 11:03 | XMS_ITS | Encounter Summary ---
Author Organization [facility] Address [address] [place] [address] [place] [address] Phone Care Team Providers Care Dry Janitor Name Role Phone Yumi Torres NP Primary Care Provider [phone] Encounter Details Date Type Department Care Team (Late st Contact Info) Description 07/15/2019 Procedure Pass [facility], [address] [address] Social History Tobacco Use Types Packs/Day Years [...] documented as of this encounter Care Teams Dry Janitor Relationship Specialty Start Date End Date Yumi Torres NP [address] [place] [phone] [email or web address] PCP - General 03/02/18 documented as of this encounter Additional Source Comments The information contained in this document represents components of the legal health record. It is not the complete legal health record.[facility]
--- OUTSIDE RECORDS SUMMARY | 2025-07-27 11:03 | XMS_ITS | Encounter Summary ---
Author Organization [facility] Address [address] [place] [address] Phone Care Team Providers Care Assessment Manager Name Role Phone Yumi Torres NP Primary Care Provider [phone] Encounter Details Date Type Department Care Team (Latest Contact Info) Description 07/25/2018 Transcribe Orders [facility] [address] [place] [address] [address] [place] [phone] Dexter Pang PA [email or web address] Acne, unspecified acne type (Primary Dx); Need [...] 3:35 PM EDT) HCG BETA <0.1 mIU/mL [facility] Comment: Interpretation: FEMALE: Negative Result: Less than 5 mIU/ml. 1 Week Post Conception: 0 - 50 mIU/ml. 4 Weeks Post Conception: 3,000 - 19,000 mIU/ml. 12 Weeks Post Conception: 16,000 - 160,000 mIU/ml. Blood 07/25/2018 3:35 PM EDT 07/25/2018 3:38 PM EDT us Dexter [facility] BLOOD ORDERABLES Final Re sult Performing Organization Address [facility] Co de Phone Number [address] [address] * (ABNORMAL) Triglycerides (07/25/2018 3:35 PM EDT) TRIGLYCERIDES 191(H) 30 - 160 mg/dL [facility] Blood 07/25/2018 3:35 PM EDT 07/25/2018 3:38 PM EDT Dexter [facility] BLOOD ORDERABLES Final Re sult Performing Organization Address [facility] de Phone Number [address] [address] * LFTs (hepatic panel) (07/25/2018 3:35 PM EDT) ALKALINE PHOSPHATASE 72 39 - 117 U/L [facility] TOTAL BILIRUBIN 0.3 0.0 - 1.2 mg/dL [facility] DIRECT BILIRUBIN <0.2 0 - 0.3 mg/dL [facility] Bilirubin (Indirect) NOT CALCULATED 0 - 1.5 mg/dL [facility] AST 24 0 - 37 U/L [facility] ALT 15 0 - 40 U/L [facility] TOTAL PROTEIN 7.3 6.5 - 8.0 g/dL [facility] ALBUMIN 4.5 3.9 - 4.8 g/dL [facility] GLOBULIN 2.8 1 - 4.8 g/dL [facility] A/G Ratio 1.61 1.00 - 4.80 RATIO [facility] Blood 07/25/2018 3:35 PM EDT 07/25/2018 3:38 PM EDT Dexter [facility] BLOOD ORDERABLES Final Re sult [facility] [address] [place] [address] documented in this encounter Visit Diagnoses Diagnosis Acne, unspecified acne type- Primary Need for prophylactic chemotherapy Need for other prophylactic chemotherapy documented in this encounter Additional Health Concerns Infection Onset Date Last Indicated Resolved Time CoV-Exposed Comment:Recent close contact 05/27/2020 05/27/2020 06/10/2020 1:37 AM EDT documented as of this encounter Care Teams Assessment Manager Relationship Specialty Start Date End Date Yumi Torres NP [address] [place] [phone] [email or web address] PCP - General 03/02/18 documented as of this encounter Additional Source Comments The information contained in this document represents components of the legal health record. It is not the complete legal health record.[facility]
--- OUTSIDE RECORDS SUMMARY | 2025-07-27 11:03 | XMS_ITS | Encounter Summary ---
Author Organization [facility] Address [address] [place] [address] Phone Care Team Providers Care Mobile Ui/Ux Designer Name Role Phone Yumi Torres NP Primary Care Provider [phone] Encounter Details Date Type Department Care Team (Latest Contact Info) Description 05/21/2019 Transcribe Orders [facility] [address] [place] [address] [place] [phone] Vish Rondon, PA [address] [place] [address] Encounter for long-term (current) use of other [...] EDT) FERRITIN 30 13 - 150 ug/L [facility] Blood 05/21/2019 9:35 AM EDT 05/21/2019 9:37 AM EDT us Vish [facility] BLOOD ORDERABLES Final Result [facility] [address] [place] [address] documented in this encounter Visit Diagnoses Diagnosis Encounter for long-term (current) use of other medications- Primary documented in this encounter Additional Health Concerns Infection Onset Date Last Indicated Resolved Time CoV-Exposed Comment:Recent close contact 05/27/2020 05/27/2020 06/10/2020 1:37 AM EDT documented as of this encounter Care Teams Mobile Ui/Ux Designer Relationship Specialty Start Date End Date Yumi Torres NP [address] [place] [phone] [email or web address] PCP - General 03/02/18 documented as of this encounter Additional Source Comments The information contained in this document represents components of the legal health record. It is not the complete legal health record.[facility]
--- OUTSIDE RECORDS SUMMARY | 2025-07-27 11:03 | XMS_ITS | Clinical Summary ---
Author Organization [facility] Address [address] [facility] [facility] [address] [place] [id number] Phone Care Team Providers Care Forming Operator Name Role Phone Yumi Torres NP Primary Care Provider [phone] Allergies Active Allergy Reactions Criticality Noted Date [...] Next Due DTaP, unspecified formulation 12/02/2005 ,02/19/2003,04/28/2002,02/03 [id number] 08/24/2009 HPV,quadrivalent 01/27/2015,03/08/2014, 4 Hepatitis A, Adult [...] EDT) CHLAMYDIA TRACHOMATIS Not Detected Not Detected [facility] NEISERIA GONORRHOEAE Not Detected Not Detected [facility] SPECIMEN TYPE ENDOCERVICAL STOCK CAR DRIVER [facility] Other (Endocervical) 02/02/2025 8:53 AM EDT 02/02/2025 3:26 PM EDT Rigoberto Kay MD NON CULTURE MICROBIOLOGY [facility] Result Performing Organization Address City/State/[facility] Co de Phone Number [address] [address] * Pap Test (08/11/2024 12:00 AM EDT) 08/11/2024 08/12/2024 9:3 1 AM EDT Narrative SEE NARRATIVE - 08/13/2024 10:37 AM EDT [address] [address] Shirt Maker: Chavez Pathak MD [employer] SALES REPRESENTATIVE Cytology Report FINAL DIAGNOSIS A. PAP SMEAR (THIN PREP) CE: SPECIMEN ADEQUACY: Satisfactory for evaluation; transformation zone present. INTERPRETATION: NEGATIVE FOR INTRAEPITHELIAL LESION OR MALIGNANCY. Coccobacilli consistent with shift in morgan This specimen was analyzed by the automated ThinPrep Imaging System ([facility] and manually rescreened by a white mixing operator and/or pathologist. Electronically Signed Out By: LESLEY [...] : 2000 (Age: 24) Sex: F Institution: [facility] Location: [facility] Date of Collection: 08/11/2024 Date of Reported: 08/13/2024 10:37 Results to: Keerthi Wilson MD Keerthi Wilson MD CYTOLOGY ORDERABLES Final Result Performing Organization Address City/[facility]/ZIP Co de Phone Number SEE NARRATIVE * Hepatitis C antibody, qualitative (04/04/2021 3:34 PM EDT) HCV NON-REACTIV E NON-REACTI VE [facility] Blood 04/04/2021 3:34 PM EDT 04/04/2021 3:40 PM EDT Rigoberto Kay MD LAB BLOOD ORDERABLES Final Re sult Performing Organization Address City/[facility]/ZIP Co de Phone Number [facility] [address] [place] [address] from Last 3 Months or Most Recently Relevant to Health Maintenance Insurance [facility] PPO EPO [employer] [facility] PPO EPO [facility] PPO EPO [employer] [facility] PPO EPO PPO EPO PPO EPO Care Teams Forming Operator Relationship Specialty Start Date End Date Yumi Torres NP [address] [place] [address] [email or web address] PCP - General 03/02/18 Additional Source Comments The information contained in this document represents components of the legal health record. It is not the complete legal health record.[facility]
== END 2025-07-27 10:59 | disposition home or self-care (01) ==
LOC: HO.HUSH 10:02
PROVIDERS: PCP Nurse Practitioner; Visit Provider Nurse Practitioner Family
DX: R31.29 Other microscopic hematuria (principal); N30.30 Trigonitis without hematuria; R39.9 Unspecified symptoms and signs involving the genitourinary system; N39.0 Urinary tract infection, site not specified; R31.0 Gross hematuria; Z13.9 Encounter for screening, unspecified
CPT/HCPCS: 52000; 99214

== ENCOUNTER 2025-07-27 10:01 | Outpatient (REF) | payer BC, SELFPAY | END 2025-07-27 10:02 | disposition home or self-care (01) | LOC: HO.LAB 10:01 | PROVIDERS: PCP Nurse Practitioner; Visit Provider Nurse Practitioner Family | DX: N30.31 Trigonitis with hematuria (principal); R10.2 Pelvic and perineal pain; Z13.89 Encounter for screening for other disorder | CPT/HCPCS: 52000; 81003; 88112 ==